=== PATIENT | female | born 1995 | race Caucasian/White ===

== ENCOUNTER 2016-09-24 23:49 | Emergency (ER) | payer OTHER ==
[~2016-09-24 23:49] MED LIST: ABILIFY PO; ABILIFY5 MG PO; ALBUTEROL17 GM INH; AMOXICILLIN PO; AMOXICILLIN500 M1 PO; ANAPROX DS550 M1 PO; ANAPROX PO; ANTIVERT PO; BACLOFEN10 MG PO; BACTRIM DS TABL1 TA1 PO; BACTRIM DS TABL1 TAB PO; BACTROBAN22 GM TP; BIRTH CONTROL PILL PO; BIRTH CONTROL PILLS; CELEXA PO; CIPRO PO; CLARITIN10 MG PO; CONCERTA PO; DICLOFENAC PO; FIORICET1 TAB PO; FLEXERIL PO; FLEXERIL10 M1 PO; FLOMAX0.4 M1 PO; IBUPROFEN PO; IBUPROFEN600 MG PO; IMITREX PO; KEFLEX PO; KEFLEX500 M1 PO; KEFLEX500 MG PO; LAMICTAL25 M1 PO; LORTAB 5/500 TA1 TA1 PO; LORTAB 7.51 TAB PO; MACROBID100 MG PO; MEDROL DOSEPAK4 MG PO; MEDROL4 MG/DOSE- PO; MELATONIN3 MG PO; MOTRIN600 M2 PO; MOTRIN600 MG PO; MTERYTI COMBO1 EACH; MUCINEX DM1 TAB.SR . PO; NAPROXEN PO; NEURONTIN100 MG PO; NO MEDICATIONS; NORFLEX100 M1; OMEPRAZOLE20 M2 PO; OMNICEF PO; PEN-VEE K PO; PERCOCET 5-3251 TAB PO; PERCOCET5/325 PO; PHENERGAN25 M1 PO; PHENERGAN25 MG PO; PHENERGAN50 MG PR; PREDNISONE PO; PRENATAL1 TA1 PO; PRILOSEC; PRILOSEC PO; PRILOSEC20 M1 PO; PRILOSEC20 MG DOB; PRILOSEC20 MG PO; PYRIDIUM PO; PYRIDIUM100 MG PO; ROBAXIN PO; ROBAXIN500 MG PO; SKELAXIN PO; TYLENOL #3 PO; TYLENOL FLU; ULTRAM PO; VICODIN 5/1 TAB 5/50 PO; VISTARIL PO; VOLTAREN75 MG PO; ZANTAC PO; ZANTAC150 MG PO; ZITHROMAX PO; ZOFRANODT PO; ZOLOFT PO; ZOLOFT50 MG PO; [UNRECOGNIZED DRUG - REMARK]
[2016-09-24 23:51] LABS: URINE SOURCE CLEAN CATCH
[2016-09-24 23:53] LABS: URINE APPEARANCE HAZY; URINE BILIRUBIN NEG (NEG); URINE BLOOD 1+ (NEG); URINE COLOR YELLOW; URINE GLUCOSE NEG (NORM); URINE KETONE TRACE (NEG); URINE LEUKOCYTE ESTERASE NEG (NEG); URINE NITRATE NEG (NEG); URINE PH 5.5 (5-8); URINE PROTEIN TRACE (NEG); URINE SPECIFIC GRAVITY >=1.030 (1.003-1.035)
[2016-09-24 23:55] LABS: CULTURE INDICATED? NO; MICRO INDICATED? YES; URINE BACTERIA NEG (NEG); URINE MUCUS PRESENT; URINE SQUAMOUS EPITHELIAL CELL OCCAS /[HPF]; URINE TRANSITIONAL EPI CELLS FEW /[HPF]; URINE WBC 0-2 /[HPF] (0-5)
== END 2016-09-25 00:27 | disposition home or self-care (01) ==
LOC: SED 23:49
PROVIDERS: Physician Assistant
DX: O9A.211 Injury, poisoning and certain other consequences of external causes complicating pregnancy, first trimester (principal); S29.9XXA Unspecified injury of thorax, initial encounter; S39.92XA Unspecified injury of lower back, initial encounter; O99.331 Smoking (tobacco) complicating pregnancy, first trimester; F17.210 Nicotine dependence, cigarettes, uncomplicated; V49.40XA Driver injured in collision with unspecified motor vehicles in traffic accident, initial encounter; Y93.89 Activity, other specified; Y92.410 Unspecified street and highway as the place of occurrence of the external cause
CPT/HCPCS: 81003; 99283